=== PATIENT | male | born 1990 | race Hispanic/Latino ===

== ENCOUNTER 2023-05-22 20:16 | Emergency (ER) | payer OTHER ==
[~2023-05-22] VITALS: Ht 180.3 cm; Wt 88.5 kg
[2023-05-22 22:46] VITALS: BP 125/70
== END 2023-05-22 22:53 | disposition home or self-care (01) ==
LOC: ED 20:16
DX: S52.512A Displaced fracture of left radial styloid process, initial encounter for closed fracture (principal); W18.30XA Fall on same level, unspecified, initial encounter; Y93.64 Activity, baseball
CPT/HCPCS: 29125; 73110; 99283 25